=== PATIENT | male | born 2000 | race African-American/Black ===

== ENCOUNTER 2023-01-26 15:57 | Emergency (ER) | payer MEDICAID ==
[~2023-01-26] VITALS: Ht 195.6 cm; Wt 77.0 kg
[2023-01-26 16:16] VITALS: O2SAT 100
[2023-01-26] MEDS ORDERED: ACET-2708 MT (17:27)
[2023-01-26] MEDS ORDERED: NAPR-681 MT (17:27)
[2023-01-26] MEDS ORDERED: LIDO700A15 TP (17:27)
[2023-01-26] MEDS ORDERED: KETOROLAC 30MG/ML VIAL IM ONE (17:45)
[2023-01-26 18:32] VITALS: BP 127/82; PULSE 63; RESP 18; TEMP 98.3
== END 2023-01-26 18:33 | disposition home or self-care (01) ==
LOC: ER 15:57
DX: G56.21 Lesion of ulnar nerve, right upper limb (principal); M25.531 Pain in right wrist; M79.641 Pain in right hand
CPT/HCPCS: 99284; 73110; 73130; 29125; 96372; J1885; A4565